=== PATIENT | male | born 1990 | race Hispanic/Latino ===

== ENCOUNTER 2019-03-01 13:44 | Emergency (ER) | payer OTHER ==
[2019-03-01 14:29] LABS: ALT (SGPT) 22 U/L (8-55); AST (SGOT) 16 U/L (5-34); Albumin 3.8 g/dL (3.5-5.0); Alkaline Phosphatase 99 U/L (40-150); Anion Gap 12 mmol/L (10-20); BUN (Urea Nitrogen) 15 mg/dL (8.9-20.6); Bilirubin, Total 0.3 mg/dL (0.2-1.2); Calc. Creatinine Clearance 0 mL/min (70-130); Calcium 9.4 mg/dL (7.8-10.44); Carbon Dioxide 28 mmol/L (22-29); Chloride 103 mmol/L (98-107); Estimated GFR-MDRD 85; Globulin 3.8 g/dL (2.4-3.5); Glucose 102 mg/dL (70-105); Potassium 4.1 mmol/L (3.5-5.1); Protein, Total 7.6 g/dL (6.0-8.3); Sodium 139 mmol/L (136-145)
[2019-03-01 14:34] LABS: #Basophils 0.1 thou/uL (0.0-0.2); #Eosinphils 0.2 thou/uL (0.0-0.7); #Lymphocytes 2.2 thou/uL (1.20-3.40); #Monocytes 0.5 thou/uL (0.11-0.59); #Neutrophils 5.3 thou/uL (1.40-6.50); %Basophils 1.2 % (0.0-1.0); %Eosinophils 2.5 % (0.0-10.0); %Lymphocytes 26.8 % (21.0-51.0); %Monocytes 6.2 % (0.0-10.0); %Neutrophils 63.4 % (42.0-75.0); Mean Corpuscular HGB CONC 32.2 g/dL (32.0-36.0); Mean Corpuscular Hemoglobin 28.6 pg (27.0-31.0); Mean Corpuscular Volume 88.7 fL (78.0-98.0); Mean Platelet Volume 11.9 fL (7.4-10.4); Platelet Count 113 thou/uL (130-400); Platelet Morphology Comment PLATELETS DECREASED ON SLIDE; Red Blood Cell (RBC) Count 3.86 mill/uL (4.70-6.10); White Blood Cell (WBC) Count 8.3 thou/uL (4.8-10.8)
[2019-03-01 14:35] LABS: MDiff Complete? YES; Manual Diff?? NO
[2019-03-01] MEDS ORDERED: Azithromycin 250 MG TAB ONE (14:57)
--- NOTE | 2019-03-01 19:07 | RAD ---
CHEST: Date: 03-01-19 FINDINGS: PA and lateral views are compared with the 02-19-19 study. There has been no adverse interval change. The heart is normal in size and there is no edema, congest ion, or pleural effusion. No major lobar infiltrate was seen. There is perhaps a little retrocardiac streaking and maybe a haily le increased markings in the right base, but the findings are not definite enough at this point to di agnose pneumonia. The lungs are otherwise clear. The mediastinum is unremarkable. IMPRESSION: No definite acute findings. See comments above regarding the right base. POS: HOME
== END 2019-03-01 15:08 | disposition home or self-care (01) ==
LOC: BURERS 13:44
DX: J18.9 Pneumonia, unspecified organism (principal); E78.5 Hyperlipidemia, unspecified; I11.0 Hypertensive heart disease with heart failure; I50.9 Heart failure, unspecified; E11.9 Type 2 diabetes mellitus without complications; E03.9 Hypothyroidism, unspecified; F17.210 Nicotine dependence, cigarettes, uncomplicated; Z79.84 Long term (current) use of oral hypoglycemic drugs; Z79.899 Other long term (current) drug therapy
CPT/HCPCS: 36415; 71046; 80053; 83605; 84484; 85025; 93005

== ENCOUNTER 2019-03-09 17:23 | Emergency (ER) | payer OTHER ==
[2019-03-09] MEDS ORDERED: Ondansetron ODT 4 MG TAB ONE (18:03)
[2019-03-09 18:16] LABS: ALT (SGPT) 22 U/L (8-55); AST (SGOT) 18 U/L (5-34); Albumin 3.8 g/dL (3.5-5.0); Alkaline Phosphatase 89 U/L (40-150); Anion Gap 16 mmol/L (10-20); BUN (Urea Nitrogen) 13 mg/dL (8.9-20.6); Bilirubin, Total 0.3 mg/dL (0.2-1.2); Calc. Creatinine Clearance 0 mL/min (70-130); Calcium 9.9 mg/dL (7.8-10.44); Carbon Dioxide 25 mmol/L (22-29); Chloride 104 mmol/L (98-107); Estimated GFR-MDRD 79; Globulin 3.6 g/dL (2.4-3.5); Glucose 83 mg/dL (70-105); Potassium 4.6 mmol/L (3.5-5.1); Protein, Total 7.4 g/dL (6.0-8.3)
[2019-03-09 18:21] LABS: Sodium 140 mmol/L (136-145)
[2019-03-09 19:48] LABS: #Basophils 0.1 thou/uL (0.0-0.2); #Eosinphils 0.3 thou/uL (0.0-0.7); #Lymphocytes 2.5 thou/uL (1.20-3.40); #Monocytes 0.7 thou/uL (0.11-0.59); #Neutrophils 6.5 thou/uL (1.40-6.50); %Basophils 1.1 % (0.0-1.0); %Monocytes 6.5 % (0.0-10.0); %Neutrophils 64.4 % (42.0-75.0); Hemoglobin 11.1 g/dL (14.0-18.0); Mean Corpuscular HGB CONC 33.6 g/dL (32.0-36.0); Mean Corpuscular Hemoglobin 29.9 pg (27.0-31.0); Mean Platelet Volume 11.5 fL (7.4-10.4); Platelet Count 101 thou/uL (130-400); RBC Distribution Width 14.2 % (11.5-14.5)
--- NOTE | 2019-03-09 22:03 | RAD ---
AP view chest. HISTORY: Chest pain. The lungs are well aerated. No evidence of active intrathoracic disease seen. No evidence of effusion s, pneumonia or pneumothorax seen. IMPRESSION: Unremarkable AP view chest.
== END 2019-03-09 18:41 | disposition home or self-care (01) ==
LOC: BURERS 17:23
DX: R07.89 Other chest pain (principal); E10.9 Type 1 diabetes mellitus without complications; E78.5 Hyperlipidemia, unspecified; I10 Essential (primary) hypertension; E66.9 Obesity, unspecified; F41.9 Anxiety disorder, unspecified; F31.9 Bipolar disorder, unspecified; F20.9 Schizophrenia, unspecified; F17.210 Nicotine dependence, cigarettes, uncomplicated; Z79.899 Other long term (current) drug therapy; Z79.84 Long term (current) use of oral hypoglycemic drugs; Z79.51 Long term (current) use of inhaled steroids
CPT/HCPCS: 36415; 71045; 80053; 83880; 84484; 85025; Q0162

== ENCOUNTER 2019-04-06 03:57 | Emergency (ER) | payer OTHER ==
[2019-04-06 04:41] LABS: Hemoglobin 11.7 g/dL (14.0-18.0); Mean Corpuscular HGB CONC 30.9 g/dL (32.0-36.0); Mean Corpuscular Hemoglobin 28.5 pg (27.0-31.0); Mean Corpuscular Volume 92.3 fL (78.0-98.0); Mean Platelet Volume 12.8 fL (7.4-10.4); Platelet Count 107 thou/uL (130-400); RBC Distribution Width 14.7 % (11.5-14.5); Red Blood Cell (RBC) Count 4.11 mill/uL (4.70-6.10); White Blood Cell (WBC) Count 9.4 thou/uL (4.8-10.8)
[2019-04-06 04:51] LABS: ALT (SGPT) 18 U/L (8-55); AST (SGOT) 11 U/L (5-34); Albumin 3.7 g/dL (3.5-5.0); Alkaline Phosphatase 80 U/L (40-150); Anion Gap 13 mmol/L (10-20); BUN (Urea Nitrogen) 15 mg/dL (8.9-20.6); Bilirubin, Total 0.3 mg/dL (0.2-1.2); Calc. Creatinine Clearance 0 mL/min (70-130); Calcium 9.2 mg/dL (7.8-10.44); Carbon Dioxide 24 mmol/L (22-29); Chloride 104 mmol/L (98-107); Estimated GFR-MDRD 76; Globulin 3.3 g/dL (2.4-3.5); Glucose 148 mg/dL (70-105); Potassium 4.3 mmol/L (3.5-5.1); Sodium 137 mmol/L (136-145)
[2019-04-06 04:55] LABS: #Basophils 0.2 thou/uL (0.0-0.2); #Eosinphils 0.3 thou/uL (0.0-0.7); #Lymphocytes 2.7 thou/uL (1.20-3.40); #Monocytes 0.7 thou/uL (0.11-0.59); #Neutrophils 5.6 thou/uL (1.40-6.50); %Basophils 1.9 % (0.0-1.0); %Eosinophils 2.7 % (0.0-10.0); %Lymphocytes 28.8 % (21.0-51.0); %Monocytes 6.9 % (0.0-10.0); %Neutrophils 59.7 % (42.0-75.0); Platelet Morphology Comment Appears Decreased; RBC Morphology Normal
[2019-04-06 04:58] LABS: MDiff Complete? YES; Manual Diff?? NO
--- NOTE | 2019-04-06 08:05 | RAD ---
PORTABLE CHEST: DATE: 04/06/2019. FINDINGS: An AP portable film at 0404 is compared with a 03/21/2019 study. The heart is upper normal in size, but probably appropriate for body habitus and an AP film. The vera gs are clear and fully inflated. No infiltrate, effusion , or congestion was seen. The trachea is m idline. IMPRESSION: No acute thoracic findings. POS: HOME
== END 2019-04-06 04:53 | disposition home or self-care (01) ==
LOC: BURERS 03:57
DX: R07.2 Precordial pain (principal); E78.5 Hyperlipidemia, unspecified; E10.9 Type 1 diabetes mellitus without complications; I10 Essential (primary) hypertension; F41.9 Anxiety disorder, unspecified; F31.9 Bipolar disorder, unspecified; F20.9 Schizophrenia, unspecified; F17.210 Nicotine dependence, cigarettes, uncomplicated
CPT/HCPCS: 36415; 71045; 80053; 84484; 85025; 93005

== ENCOUNTER 2019-06-09 17:45 | Emergency (ER) | payer OTHER ==
[2019-06-09] MEDS ORDERED: methylPREDNISolone Sod Succ/PF 125 MG/2 ML VIAL ONE (18:16)
--- NOTE | 2019-06-09 19:35 | RAD ---
CHEST TWO VIEWS: 06/09/19 Comparison is made with the prior study of 05/10/19 done at [facility]. The heart is normal i n size and the lungs are clear. No infiltrate or effusion was seen. The trachea is midline. IMPRESSION: No acute thoracic findings. POS: HOME
== END 2019-06-09 18:18 | disposition home or self-care (01) ==
LOC: BURERS 17:45
DX: R05 Cough (principal); R06.02 Shortness of breath; R06.2 Wheezing; E13.9 Other specified diabetes mellitus without complications; E03.9 Hypothyroidism, unspecified; E78.5 Hyperlipidemia, unspecified; E78.00 Pure hypercholesterolemia, unspecified; I10 Essential (primary) hypertension; E66.9 Obesity, unspecified; F41.9 Anxiety disorder, unspecified; F31.9 Bipolar disorder, unspecified; F17.210 Nicotine dependence, cigarettes, uncomplicated
CPT/HCPCS: 71046; 96372; J2930

== ENCOUNTER 2019-07-07 14:04 | Emergency (ER) | payer OTHER ==
[2019-07-07 14:56] LABS: ALT (SGPT) 11 U/L (8-55); AST (SGOT) 10 U/L (5-34); Albumin 3.7 g/dL (3.5-5.0); Alkaline Phosphatase 77 U/L (40-150); Anion Gap 16 mmol/L (10-20); BUN (Urea Nitrogen) 18 mg/dL (8.9-20.6); Bilirubin, Total 0.5 mg/dL (0.2-1.2); Calc. Creatinine Clearance 0 mL/min (70-130); Calcium 9.1 mg/dL (7.8-10.44); Carbon Dioxide 21 mmol/L (22-29); Chloride 104 mmol/L (98-107); Estimated GFR-MDRD 64; Globulin 3.1 g/dL (2.4-3.5); Glucose 116 mg/dL (70-105); Potassium 4.7 mmol/L (3.5-5.1); Protein, Total 6.8 g/dL (6.0-8.3); Sodium 136 mmol/L (136-145)
[2019-07-07 15:02] LABS: #Basophils 0.3 thou/uL (0.0-0.2); #Lymphocytes 1.8 thou/uL (1.20-3.40); #Monocytes 1.2 thou/uL (0.11-0.59); #Neutrophils 11.3 thou/uL (1.40-6.50); %Basophils 1.8 % (0.0-1.0); %Eosinophils 0.2 % (0.0-10.0); %Lymphocytes 12.2 % (21.0-51.0); %Monocytes 8.4 % (0.0-10.0); %Neutrophils 77.4 % (42.0-75.0); Hemoglobin 11.4 g/dL (14.0-18.0); Lymphocytes 8 % (21-51); MDiff Complete? YES; Mean Corpuscular HGB CONC 31.4 g/dL (32.0-36.0); Mean Corpuscular Hemoglobin 28.2 pg (27.0-31.0); Mean Corpuscular Volume 89.8 fL (78.0-98.0); Mean Platelet Volume 14.9 fL (7.4-10.4); Monocytes 3 % (0-10); Neutrophil 89 % (42-75); Platelet Count 96 thou/uL (130-400); RBC Distribution Width 14.6 % (11.5-14.5); Red Blood Cell (RBC) Count 4.04 mill/uL (4.70-6.10); White Blood Cell (WBC) Count 14.6 thou/uL (4.8-10.8)
--- NOTE | 2019-07-07 15:15 | RAD ---
EXAM: Single view of the chest HISTORY: Chest pain COMPARISON: 05/10/2019 FINDINGS: Single view of the chest shows a normal sized cardiomediastinal silhouette. There is no james dence of consolidation, mass, or pleural effusion. The bones are unremarkable. IMPRESSION: No evidence of acute cardiopulmonary disease
[2019-07-07 15:42] LABS: Acetaminophen Less than 6.0 mcg/mL (10.0-30.0); Alcohol Less than 10 mg/dL (Less than 10); Salicylate Less than 8.0 mg/dL (15.0-30.0)
[2019-07-07 15:48] LABS: Bilirubin Negative (Negative); Blood, Urine Negative (Negative); Clarity Clear (Clear); Glucose, Urine (Dipstick) Negative (Negative); Leukocyte Negative (Negative); Nitrite Negative (Negative); Protein, Urine (Dipstick) Negative (Neg-Trace); Urobilinogen 0.2 mg/dL (Less than 2)
[2019-07-07 15:55] LABS: Amphetamine Not Detected (NotDetected); Barbiturates Screen Not Detected (NotDetected); Benzodiazepine Screen Not Detected (NotDetected); Cocaine Metabolite Screen Not Detected (NotDetected); Medtox Control Line Valid? VALID (VALID); Methadone Not Detected (NotDetected); Methamphetamine Not Detected (NotDetected); Opiate Screen Not Detected (NotDetected); Oxycodone Screen Not Detected (NotDetected); Phencyclidine (PCP) Not Detected (NotDetected); THC/Cannabinoid Screen Not Detected (NotDetected); Tricyclic Screen Not Detected (NotDetected)
[2019-07-07] MEDS ORDERED: Ibuprofen 200 MG TAB ONE (16:09)
== END 2019-07-07 16:18 | disposition home or self-care (01) ==
LOC: BURERS 14:04
DX: R07.89 Other chest pain (principal); D72.829 Elevated white blood cell count, unspecified; E13.9 Other specified diabetes mellitus without complications; E66.9 Obesity, unspecified; E03.9 Hypothyroidism, unspecified; E78.5 Hyperlipidemia, unspecified; E78.00 Pure hypercholesterolemia, unspecified; I10 Essential (primary) hypertension; F31.9 Bipolar disorder, unspecified; F41.9 Anxiety disorder, unspecified; F20.9 Schizophrenia, unspecified; F17.210 Nicotine dependence, cigarettes, uncomplicated; Z79.899 Other long term (current) drug therapy; Z79.4 Long term (current) use of insulin
CPT/HCPCS: 36416; 71045; 80053; 80306; 80307; 81003; 83605; 84484; 85025; 93005; 36415-59

== ENCOUNTER 2019-07-26 22:41 | Emergency (ER) | payer OTHER | END 2019-07-26 23:15 | disposition home or self-care (01) | LOC: BURERS 22:41 | DX: M79.672 Pain in left foot (principal); F41.9 Anxiety disorder, unspecified; F31.9 Bipolar disorder, unspecified; F20.9 Schizophrenia, unspecified; F17.210 Nicotine dependence, cigarettes, uncomplicated; E11.9 Type 2 diabetes mellitus without complications; E03.9 Hypothyroidism, unspecified; E78.5 Hyperlipidemia, unspecified; E66.9 Obesity, unspecified; Z79.4 Long term (current) use of insulin | CPT/HCPCS: 36416; 99281 ==

== ENCOUNTER 2019-08-02 15:11 | Emergency (ER) | payer OTHER ==
--- NOTE | 2019-08-02 17:56 | CT ---
CT ABDOMEN AND PELVIS WITHOUT CONTRAST: Date: 08-02-[address] of the abdomen and pelvis was performed for evaluation of abdominal pain following trauma. Axial slices were acquired followed by coronal and sagittal reconstructions. FINDINGS: The lung bases are clear. The liver, spleen, pancreas, adrenal glands, kidneys, gallbladder, and abdo ganesh aorta all appear normal within the limitations of a noncontrast study. There is no sign of lace ration or hematoma in any major organ. The bowel shows no distention, wall thickening, or other acute change. There is no free air or free fluid evident. CT of the pelvis shows no pelvic masses, fluid collections, or hematoma. The lumbar spine and bony pe lvis appear intact. An incidental finding is posterior displacement of the tip of the coccyx, which I suspect is not acute. Not all of the patient's soft tissues were within the field of view of the lyudmila dy, however, those visualized showed no gross hematoma. IMPRESSION: 1. No acute traumatic finding. 2. Posterior displacement of the tip of the coccyx, probably not acute. By history, this is not in an area where the patient is experiencing pain. POS: HOME
== END 2019-08-02 15:58 | disposition home or self-care (01) ==
LOC: BURERS 15:11
DX: S30.1XXA Contusion of abdominal wall, initial encounter (principal); E11.9 Type 2 diabetes mellitus without complications; E03.9 Hypothyroidism, unspecified; E78.5 Hyperlipidemia, unspecified; E66.9 Obesity, unspecified; F41.9 Anxiety disorder, unspecified; F31.9 Bipolar disorder, unspecified; F20.9 Schizophrenia, unspecified; F17.210 Nicotine dependence, cigarettes, uncomplicated; W22.8XXA Striking against or struck by other objects, initial encounter
CPT/HCPCS: 74176

== ENCOUNTER 2019-08-05 17:09 | Emergency (ER) | payer OTHER ==
[2019-08-05 18:09] LABS: ALT (SGPT) 14 U/L (8-55); AST (SGOT) 11 U/L (5-34); Albumin 3.9 g/dL (3.5-5.0); Alkaline Phosphatase 84 U/L (40-110); Anion Gap 15 mmol/L (10-20); BUN (Urea Nitrogen) 15 mg/dL (8.9-20.6); Bilirubin, Total 0.4 mg/dL (0.2-1.2); CK (CPK) 85 U/L (30-200); Calc. Creatinine Clearance 0 mL/min (70-130); Calcium 9.5 mg/dL (7.8-10.44); Carbon Dioxide 25 mmol/L (22-29); Chloride 104 mmol/L (98-107); Estimated GFR-MDRD 72; Globulin 4.1 g/dL (2.4-3.5); Potassium 3.5 mmol/L (3.5-5.1); Sodium 140 mmol/L (136-145)
[2019-08-05 18:10] LABS: #Basophils 0.2 thou/uL (0.0-0.2); #Eosinphils 0.5 thou/uL (0.0-0.7); #Lymphocytes 2.9 thou/uL (1.20-3.40); #Neutrophils 7.8 thou/uL (1.40-6.50); %Basophils 1.5 % (0.0-1.0); %Eosinophils 4.3 % (0.0-10.0); %Neutrophils 63.2 % (42.0-75.0); Hemoglobin 12.6 g/dL (14.0-18.0); Large Platelets MODERATE; MDiff Complete? YES; Mean Corpuscular HGB CONC 30.5 g/dL (32.0-36.0); Mean Corpuscular Hemoglobin 28.2 pg (27.0-31.0); Mean Corpuscular Volume 92.2 fL (78.0-98.0); Mean Platelet Volume 13.8 fL (7.4-10.4); Platelet Count 116 thou/uL (130-400); Platelet Morphology Comment smear confirms low plt count; Red Blood Cell (RBC) Count 4.46 mill/uL (4.70-6.10); White Blood Cell (WBC) Count 12.4 thou/uL (4.8-10.8)
[2019-08-05 18:17] LABS: Glucose 49 mg/dL (70-105)
== END 2019-08-05 19:45 | disposition home or self-care (01) ==
LOC: BURERS 17:09
DX: E13.649 Other specified diabetes mellitus with hypoglycemia without coma (principal); R55 Syncope and collapse; E03.9 Hypothyroidism, unspecified; E78.5 Hyperlipidemia, unspecified; E78.00 Pure hypercholesterolemia, unspecified; I10 Essential (primary) hypertension; E66.9 Obesity, unspecified; F31.9 Bipolar disorder, unspecified; F41.9 Anxiety disorder, unspecified; F20.9 Schizophrenia, unspecified; F17.210 Nicotine dependence, cigarettes, uncomplicated; Z79.4 Long term (current) use of insulin
CPT/HCPCS: 36416; 80053; 82550; 84484; 85025; 93005

== ENCOUNTER 2020-11-17 12:11 | Emergency (ER) | payer OTHER ==
[2020-11-17] MEDS ORDERED: Insulin Regular 300 UNITS/3 ML VIAL ONE (13:13)
[2020-11-17] MEDS ORDERED: Ketorolac Tromethamine 30 MG/ML VIAL ONE ×2 (13:13→13:16)
[2020-11-17 13:24] LABS: ALT (SGPT) 60 U/L (8-55); AST (SGOT) 51 U/L (5-34); Albumin 3.9 g/dL (3.5-5.0); Alkaline Phosphatase 129 U/L (40-110); Anion Gap 17 mmol/L (10-20); BUN (Urea Nitrogen) 16 mg/dL (8.9-20.6); Bilirubin, Total 0.4 mg/dL (0.2-1.2); Calc. Creatinine Clearance 0 mL/min (70-130); Calcium 9.3 mg/dL (7.8-10.44); Carbon Dioxide 26 mmol/L (22-29); Chloride 96 mmol/L (98-107); Globulin 3.8 g/dL (2.4-3.5); Glucose 470 mg/dL (70-105); Potassium 4.1 mmol/L (3.5-5.1); Protein, Total 7.7 g/dL (6.0-8.3); Sodium 135 mmol/L (136-145)
[2020-11-17 13:56] LABS: Base Excess-Venous 1.3 mmol/L (-2.0 to 3.0); Bicarbonate (HCO3v) 27.9 mmol/L (22.0-28.0); CO2 Tension (PvCO2) 49.8 mmHg (40.0-50.0); Calcium, Ionized 1.06 mmol/L (1.15-1.33); Chloride 97 mmol/L (98-107); Hemoglobin - Calc 16.5 g/dL (14.0-18.0); Potassium 4.1 mmol/L (3.5-5.1); Sodium 135 mmol/L (138-145); T. Carbon Dioxide 29.4 mmol/L (22.0-28.0); vO2 Saturation-calc 99.2 % (60.0-85.0)
[2020-11-17 14:09] LABS: Hemoglobin 15.3 g/dL (14.0-18.0); Mean Corpuscular HGB CONC 31.7 g/dL (32.0-36.0); Mean Corpuscular Hemoglobin 29.2 pg (27.0-31.0); Mean Corpuscular Volume 92.1 fL (78.0-98.0); Mean Platelet Volume 15.2 fL (7.4-10.4); Platelet Count 70 thou/uL (130-400); RBC Distribution Width 13.7 % (11.5-14.5); Red Blood Cell (RBC) Count 5.24 mill/uL (4.70-6.10); White Blood Cell (WBC) Count 7.8 thou/uL (4.8-10.8)
[2020-11-17 14:40] LABS: #Basophils 0.1 thou/uL (0.0-0.2); #Eosinphils 0.2 thou/uL (0.0-0.7); #Lymphocytes 2.4 thou/uL (1.20-3.40); #Monocytes 0.5 thou/uL (0.11-0.59); #Neutrophils 4.7 thou/uL (1.40-6.50); %Basophils 1.3 % (0.0-1.0); %Eosinophils 2.5 % (0.0-10.0); %Lymphocytes 30.2 % (21.0-51.0); Platelet Morphology Comment Appears Decreased
--- NOTE | 2020-11-17 18:01 | RAD ---
PORTABLE CHEST: Date: 11-17-2020 An AP portable film at 1310 is compared with a 07-07-19 study. FINDINGS: The heart is normal in size. No focal pulmonary infiltrates or pulmonary edema was seen. There is no vascular congestion. As the film is show in a lordotic fashion, a portion of the patient's abdomen co mes to overlie the lower chest, thus causing the densities there. IMPRESSION: No acute findings. POS: HOME
== END 2020-11-17 14:30 | disposition home or self-care (01) ==
LOC: BURERS 12:11
DX: T59.811A Toxic effect of smoke, accidental (unintentional), initial encounter (principal); M79.18 Myalgia, other site; E13.9 Other specified diabetes mellitus without complications; E03.9 Hypothyroidism, unspecified; E78.5 Hyperlipidemia, unspecified; I10 Essential (primary) hypertension; F17.210 Nicotine dependence, cigarettes, uncomplicated
CPT/HCPCS: 36415; 71045; 80053; 82330; 82803; 83605; 85025; 93005; 96374; 96375; J1815; J1885

== ENCOUNTER 2021-03-19 19:30 | Emergency (ER) | payer OTHER ==
[2021-03-19] MEDS ORDERED: Ketorolac Tromethamine 60 MG/2 ML VIAL ONE (20:08)
== END 2021-03-19 21:00 | disposition home or self-care (01) ==
LOC: BURERS 19:30
DX: S20.212A Contusion of left front wall of thorax, initial encounter (principal); S40.012A Contusion of left shoulder, initial encounter; E11.9 Type 2 diabetes mellitus without complications; M54.6 Pain in thoracic spine; E03.9 Hypothyroidism, unspecified; E78.5 Hyperlipidemia, unspecified; I10 Essential (primary) hypertension; E66.9 Obesity, unspecified; F17.210 Nicotine dependence, cigarettes, uncomplicated; Z79.899 Other long term (current) drug therapy; Z79.4 Long term (current) use of insulin; W01.0XXA Fall on same level from slipping, tripping and stumbling without subsequent striking against object, initial encounter
CPT/HCPCS: 96372; J1885

== ENCOUNTER 2021-03-29 19:09 | Emergency (ER) | payer OTHER ==
[2021-03-29 19:43] LABS: Bilirubin Negative (Negative); Blood, Urine Trace (Negative); Clarity Clear (Clear); Glucose, Urine (Dipstick) 500 mg/dL (Negative); Ketone, Urine Negative (Negative); Leukocyte Negative (Negative); Nitrite Negative (Negative); Protein, Urine (Dipstick) > or equal to 300 mg/dL (Neg-Trace); Urobilinogen 0.2 mg/dL (Less than 2)
[2021-03-29] MEDS ORDERED: Bacitracin 1 PK ONE (19:51)
[2021-03-29 19:56] LABS: ALT (SGPT) 29 U/L (8-55); AST (SGOT) 20 U/L (5-34); Acetaminophen Less than 6.0 mcg/mL (10.0-30.0); Albumin 3.7 g/dL (3.5-5.0); Alcohol Less than 10 mg/dL (Less than 10); Alkaline Phosphatase 98 U/L (40-110); Anion Gap 19 mmol/L (10-20); BUN (Urea Nitrogen) 9 mg/dL (8.9-20.6); Bilirubin, Total 0.4 mg/dL (0.2-1.2); CK (CPK) 64 U/L (30-200); Calc. Creatinine Clearance 0 mL/min (70-130); Calcium 9.5 mg/dL (7.8-10.44); Carbon Dioxide 21 mmol/L (22-29); Chloride 102 mmol/L (98-107); Globulin 4.2 g/dL (2.4-3.5); Glucose 430 mg/dL (70-105); Potassium 3.9 mmol/L (3.5-5.1); Protein, Total 7.9 g/dL (6.0-8.3); Salicylate Less than 8.0 mg/dL (15.0-30.0); Sodium 138 mmol/L (136-145)
[2021-03-29 20:00] LABS: Bacteria/HPF None Seen HPF (None Seen); RBC/HPF 0-3 HPF (0-3); Squamous Epithelial 0-3 HPF (0-3); WBC/HPF 0-3 HPF (0-3)
[2021-03-29 20:16] LABS: #Basophils 0.2 thou/uL (0.0-0.2); #Lymphocytes 1.9 thou/uL (1.20-3.40); #Monocytes 0.7 thou/uL (0.11-0.59); #Neutrophils 6.8 thou/uL (1.40-6.50); %Basophils 1.8 % (0.0-1.0); %Eosinophils 0.4 % (0.0-10.0); %Lymphocytes 20.1 % (21.0-51.0); %Neutrophils 70.8 % (42.0-75.0); Hemoglobin 12.9 g/dL (14.0-18.0); Mean Corpuscular HGB CONC 33.1 g/dL (32.0-36.0); Mean Corpuscular Hemoglobin 30.1 pg (27.0-31.0); Mean Corpuscular Volume 90.9 fL (78.0-98.0); Mean Platelet Volume 14.4 fL (7.4-10.4); Platelet Count 122 thou/uL (130-400); RBC Distribution Width 13.7 % (11.5-14.5); Red Blood Cell (RBC) Count 4.29 mill/uL (4.70-6.10); White Blood Cell (WBC) Count 9.5 thou/uL (4.8-10.8)
[2021-03-29 20:34] LABS: Amphetamine Not Detected (NotDetected); Barbiturates Screen Not Detected (NotDetected); Benzodiazepine Screen Detected (NotDetected); Cocaine Metabolite Screen Not Detected (NotDetected); Medtox Control Line Valid? VALID (VALID); Methadone Not Detected (NotDetected); Methamphetamine Not Detected (NotDetected); Opiate Screen Not Detected (NotDetected); Oxycodone Screen Not Detected (NotDetected); Phencyclidine (PCP) Not Detected (NotDetected); THC/Cannabinoid Screen Not Detected (NotDetected); Tricyclic Screen Not Detected (NotDetected)
[2021-03-29] MEDS ORDERED: Ondansetron PF 4 MG/2 ML Vial ONE (20:49)
[2021-03-29] MEDS ORDERED: Insulin Regular 300 UNITS/3 ML VIAL ONE (20:52)
[2021-03-29] MEDS ORDERED: Levothyroxine Sodium 100 MCG TAB PO SCH (21:00)
[2021-03-29] MEDS ORDERED: Levothyroxine Sodium 25 MCG TAB PO SCH (21:00)
[2021-03-29 21:09] LABS: Large Platelets SLIGHT; MDiff Complete? YES; Platelet Morphology Comment Appears Decreased
== END 2021-03-30 09:12 ==
LOC: BURERS 19:09
DX: S51.812A Laceration without foreign body of left forearm, initial encounter (principal); S61.512A Laceration without foreign body of left wrist, initial encounter; E11.9 Type 2 diabetes mellitus without complications; E03.9 Hypothyroidism, unspecified; E78.5 Hyperlipidemia, unspecified; E66.9 Obesity, unspecified; F17.210 Nicotine dependence, cigarettes, uncomplicated; Z79.4 Long term (current) use of insulin; Z79.899 Other long term (current) drug therapy; W26.8XXA Contact with other sharp object(s), not elsewhere classified, initial encounter
CPT/HCPCS: 36416; 80053; 80306; 80307; 81003; 81015; 82550; 84443; 85025; 93005; 94760; J1815; J2405

== ENCOUNTER 2021-07-10 21:28 | Emergency (ER) | payer OTHER ==
[2021-07-10] MEDS ORDERED: hydrOXYzine 25 MG TAB ONE (21:56)
== END 2021-07-10 22:20 | disposition left against medical advice (07) ==
LOC: BURERS 21:28
DX: M79.604 Pain in right leg (principal); M79.605 Pain in left leg; G89.29 Other chronic pain; R35.0 Frequency of micturition
CPT/HCPCS: 36416; 99283